=== PATIENT | male | born 1965 | race Caucasian/White ===

== ENCOUNTER 2017-08-12 12:45 | Emergency (ER) | payer OTHER ==
[2017-08-12 12:50] VITALS: PULSE 112; TEMP 98.1; BMI 30.5
[2017-08-12] MEDS ORDERED: PHENAZOPYRIDINE HCL 100 MG TABLET (FP) PO ONE (13:18)
[2017-08-12] MEDS ORDERED: TAMSULOSIN HCL 0.4 MG CAP.ER.24H (FP) PO ONE (13:18)
--- NOTE | 2017-08-12 13:26 | PDOC ---
History of Present Illness - General Chief Complaint: Urinary Catheter Problem Stated Complaint: URINARY RETENTION Time Seen by Provider: 08/12/17 13:17 - History of Present Illness Initial Comments: 08/12/17 14:25 Urinary retention History of present illness: The patient has been able to produce only dribbles of urine since this morning. Dysuria is present. There is also suprapubic pain. He catheterizes himself approximately once per week when he feels he is not urinating adequately. The rest of the time he is able to urinate normally. He has been doing this since multiple kidney stones left him with "scarring" and narrowing. Review of systems: No fever/chills, URI symptoms, sore throat, cough, chest pain , shortness of breath, hematemesis, melena, bloody stool, nausea, vomiting, diarrhea, visual or focal neurologic symptoms, unsteadiness of gait. 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 Denies prior ND. Urinary retention is noted above. Social/family history reviewed and noncontributory Physical exam: Alert and oriented well-developed well-nourished no acute distress cooperative Afebrile, vital signs normal No pallor or icterus. ENT clear Neck supple without bruit mass or nodes Lungs clear with full breath sounds bilaterally CV regular without murmur rub or gallop pulses full and symmetric no JVD or edema no bruits Abdomen nondistended. Bowel sounds normal. Soft without masses tenderness organomegaly. The bladder is not enlarged to percussion, and bladder scan reveals only 25-50 mL of urine : No CVAT. Testes descended bilaterally, without mass or tenderness. No urethral discharge or lesions. No inflammation. No hernias. Extremities no CCE Neurological C2 to 12 intact. No focal sensory or motor deficits. Gait stable and unimpaired Skin clear, no rash, adequate turgor and wet mucous membranes Impression: Urinary retention, intermittent, chronic, with probable prostatic inflammation preventing self-catheterization. Rule out UTI prostatitis. Plan: Attempt at catheterization was unsuccessful. Flomax and Pyridium were administered by mouth. Urologist was paged. Soon after taking the medication, the patient was able to urinate freely and desires to go to his urologist now as scheduled. He was unable to provide a urine sample. He will see his urologist now, hopefully provide a urine for urinalysis and culture, and discuss further treatment at that time. Fully ambulatory, no pain or other discomfort upon discharge, having urinated adequately, to follow-up later today with his urologist as scheduled. Past History - Past Medical History Allergies/Adverse Reactions: Allergies Allergy/AdvReac Type Severity Reaction Status Date / Time No Known Allergies Allergy Verified 08/12/17 12:53 Home Medications: Ambulatory Orders Allopurinol 300 mg PO DAILY 05/24/15 Aspirin [ASA -] 81 mg PO DAILY 05/24/15 Potassium Chloride [K-Dur] 10 meq PO BID 05/24/15 Pravastatin Sodium 20 mg PO DAILY 05/24/15 Telmisartan [Micardis] 80 mg PO DAILY 05/24/15 Carvedilol 25 mg PO BID tablet 05/28/15 Ibuprofen 600 mg PO TID PRN #20 tablet 05/16/16 Cardiac Disorders: Yes (pace maker/defibrillator,cardiomyopathy) COPD: No Diabetes: Yes Disorders: Yes (SELF CATHETERIZES) HTN: Yes Kidney Stones: Yes - Surgical History Cardiac Surgery: Yes (pace maker/defibrillator) - Immunization History Td Vaccination: Yes Immunization Up to Date: Yes - Suicide/Smoking/Psychosocial Hx Smoking Status: Yes Smoking History: Current every day smoker Have you smoked in the past 12 months: Yes Number of Cigarettes Smoked Daily: 20 Cigars Per Day: 0 Information on smoking cessation initiated: Yes 'Breaking Loose' booklet given: 08/12/17 Hx Alcohol Use: No Drug/Substance Use Hx: No Substance Use Type: None *Physical Exam - Vital Signs Last Vital Signs Temp Pulse Resp BP Pulse Ox 98.1 F 112 H 17 148/108 97 08/12/17 12:46 08/12/17 12:46 08/12/17 12:46 08/12/17 12:46 08/12/17 12:46 *DC/Admit/Observation/Transfer Diagnosis at time of Disposition: Urinary retention - Discharge Dispostion Disposition: HOME Condition at time of disposition: Improved Admit: No - Referrals Referrals: Thang Bass MD [Primary Care Provider] - - Patient Instructions Printed Discharge Instructions: DI for Urinary Retention in Men Additional Instructions: See your urologist today as scheduled. Provide urine for urinalysis and culture. Return to ER if there are any further symptoms. - Post Discharge Activity
[2017-08-12] MEDS ORDERED: PHENAZOPYRIDINE HCL 100 MG TABLET (FP) ONE (13:32)
[2017-08-12] MEDS ORDERED: TAMSULOSIN HCL 0.4 MG CAP.ER.24H (FP) ONE (13:32)
[2017-08-12 14:17] VITALS: BP 143/92
== END 2017-08-12 14:17 | disposition home or self-care (01) ==
LOC: FER 12:45
DX: R33.9 Retention of urine, unspecified (principal); F17.210 Nicotine dependence, cigarettes, uncomplicated; E11.9 Type 2 diabetes mellitus without complications; I10 Essential (primary) hypertension; Z87.442 Personal history of urinary calculi; Z95.0 Presence of cardiac pacemaker
CPT/HCPCS: 99282-25

== ENCOUNTER 2019-08-29 00:18 | Emergency (ER) | payer OTHER ==
[2019-08-29] MEDS ORDERED: KETOROLAC TROMETHAMINE 30 MG/1 ML VIAL IVPUSH ONE (00:21)
[2019-08-29] MEDS ORDERED: SODIUM CHLORIDE 1,000 ML IV ONE (00:21)
--- NOTE | 2019-08-29 00:22 | PDOC ---
History of Present Illness - General Stated Complaint: KIDNEY STONE Time Seen by Provider: 08/29/19 00:20 History Source: Patient Exam Limitations: No Limitations - History of Present Illness Initial Comments: 08/29/19 01:02 This is a 53-year-old male who comes in complaining of left flank pain radiating to his left lower quadrant. Patient has a history of renal colic in the past. 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 Patient's last stone was approximately 2 years ago. Patient denies any fevers, chills, nausea, vomiting, diarrhea blood in his urine or any other complaints. Allergies: as per nursing notes Past Medical History: Kidney stones Social history: Lives with family. No smoking. No alcohol. No illicit drugs. Surgical history: None General: No fevers or chills, no weakness, no weight loss HEENT: No change in vision. No sore throat,. No ear pain CardioVascular: no chest discomfort. No shortness of breath Respiratory:No cough, or wheezing. Gastrointestinal: no nausea, vomiting, diarrhea or constipation, No rectal bleeding Genitourinary: No dysuria, hematuria, or frequency Back/flank: Left flank pain Musculoskeletal: No joint or muscle pain or swelling Neurologic: No headache, vertigo, dizziness or loss of consciousness Psychiatric: nor depression Skin: No rashes or easy bruising Endocrine: no increased thirst or abnormal weight change Allergic: no skin or latex allergy All other systems reviewed and normal GENERAL: The patient is awake, alert, and fully oriented, in no acute distress. HEAD: Normal with no signs of trauma. EYES: Pupils equal, round and reactive to light, extraocular movements intact, sclera anicteric, conjunctiva clear. Back/Flank: There is pain on palpation over the right flank, there is no CVA tenderness on palpation. EXTREMITIES:atraumatic, Normal range of motion, no edema. NEUROLOGICAL: Normal speech, normal gait. PSYCH: Normal mood, normal affect. SKIN: Warm, Dry, normal turgor, no rashes or lesions noted. Assessment and plan: This is a 53-year-old male with history of renal colic in the past who comes in with left flank pain. Most likely secondary to a kidney stone. Work-up initiated including spiral CT, CBC, comp, UA and urine culture. Past History - Past Medical History Allergies/Adverse Reactions: Allergies Allergy/AdvReac Type Severity Reaction Status Date / Time No Known Allergies Allergy Verified 08/29/19 00:31 Home Medications: Ambulatory Orders Allopurinol 300 mg PO DAILY 05/24/15 Aspirin [ASA -] 81 mg PO DAILY 05/24/15 Potassium Chloride [K-Dur] 10 meq PO BID 05/24/15 Pravastatin Sodium 20 mg PO DAILY 05/24/15 Telmisartan [Micardis] 80 mg PO DAILY 05/24/15 Carvedilol 25 mg PO BID tablet 05/28/15 Ibuprofen 600 mg PO TID PRN #20 tablet 05/16/16 Cardiac Disorders: Yes (pace maker/defibrillator,cardiomyopathy) COPD: No Diabetes: Yes Disorders: Yes (SELF CATHETERIZES) HTN: Yes Kidney Stones: Yes - Surgical History Cardiac Surgery: Yes (pace maker/defibrillator) - Immunization History Td Vaccination: Yes Immunization Up to Date: Yes - Psycho Social/Smoking Cessation Hx Smoking Status: Yes Smoking History: Current every day smoker Have you smoked in the past 12 months: Yes Number of Cigarettes Smoked Daily: 20 Cigars Per Day: 0 'Breaking Loose' booklet given: 08/12/17 Hx Alcohol Use: No Drug/Substance Use Hx: No Substance Use Type: None ED Treatment Course - LABORATORY CBC & Chemistry Diagram: 08/29/19 00:30 08/29/19 00:30 Discharge - Discharge Information Problems reviewed: Yes Clinical Impression/Diagnosis: Renal colic on left side Condition: Good Disposition: HOME - Admission No - Follow up/Referral - Patient Discharge Instructions Additional Instructions: For the pain take ibuprofen or naproxen. Follow-up with your urologist. Stay well-hydrated. Return to the emergency department immediately with ANY new, persistent or worsening symptoms. Continue any medications as previously prescribed by your physician. You should follow up with your primary doctor as soon as possible regarding today's emergency department visit. . Please make sure your doctor reviews the results of your emergency evaluation. Thank you for coming to the Emergency Department today for your care. It was a pleasure to see you today. Please note that your evaluation is INCOMPLETE until you follow-up with your doctor. - Post Discharge Activity
[2019-08-29 00:43] VITALS: TEMP 98.1; BMI 29.5
[2019-08-29 01:00] LABS: BASO % 0.8 % (0-2.0); EOS % 1.3 % (0-4.5); HEMATOCRIT 47.9 % (35.4-49); HEMOGLOBIN 16.3 GM/dL (11.7-16.9); LYMPH % 17.2 % (8-40); MCH 31.5 pg (25.7-33.7); MCHC 34.1 g/dl (32.0-35.9); MEAN CELL VOLUME 92.3 fl (80-96); MONO % 6.4 % (3.8-10.2); NEUT % 74.3 % (42.8-82.8); PLATELET COUNT 255 K/MM3 (134-434); RBC 5.19 M/mm3 (4.00-5.60); RDW 13.8 % (11.9-15.9); WHITE BLOOD COUNT 8.1 K/mm3 (4.0-10.0)
[2019-08-29 01:21] LABS: ALBUMIN 4.3 g/dl (3.4-5.0); BILIRUBIN,TOTAL 0.5 mg/dL (0.2-1); CALCIUM 10.1 mg/dL (8.5-10.1); CREATININE 1.4 mg/dL (0.55-1.3); POTASSIUM 4.5 mmol/L (3.5-5.1); TOT PROT 8.2 g/dl (6.4-8.2)
[2019-08-29 01:26] LABS: EPI CELLS 0.5 /HPF (0-5/HPF); HYALINE CASTS 1 /lpf (0-8); URINE APPEARANCE CLEAR; URINE BACTERIA 36.6 /hpf (NEGATIVE); URINE BILIRUBIN NEGATIVE (NEGATIVE); URINE COLOR YELLOW; URINE GLUCOSE (UA) 3+ (NEGATIVE); URINE KETONE NEGATIVE (NEGATIVE); URINE LEUK ESTERASE 1+ (NEGATIVE); URINE NITRITE NEGATIVE (NEGATIVE); URINE PROTEIN NEGATIVE (NEGATIVE); URINE RBC 15 /hpf (0-4); URINE WBC 133 /hpf (0-5)
[2019-08-29 01:58] VITALS: BP 113/77; PULSE 88
== END 2019-08-29 01:59 | disposition home or self-care (01) ==
LOC: FER 00:18
PROC: 3E0333Z Introduction of Anti-inflammatory into Peripheral Vein, Percutaneous Approach (ICD-10-PCS; principal; 2019-08-29)
DX: N20.0 Calculus of kidney (principal); E11.9 Type 2 diabetes mellitus without complications; F17.210 Nicotine dependence, cigarettes, uncomplicated; Z95.5 Presence of coronary angioplasty implant and graft; I10 Essential (primary) hypertension
CPT/HCPCS: 36415; 74176-TC; 80053; 81003; 85025; 87086; 87186; 99282-25; J7030

== ENCOUNTER 2021-07-18 01:24 | Emergency (ER) | payer BC, OTHER ==
[2021-07-18 01:31] VITALS: BP 122/79; PULSE 80; TEMP 97.7; BMI 34.8
[2021-07-18] MEDS ORDERED: KETOROLAC TROMETHAMINE 60 MG/2 ML VIAL IM ONE (02:07)
[2021-07-18] MEDS ORDERED: CIPROFLOXACIN 500 MG TABLET (RESTRICTED TO ID) PO ONE (02:07)
[2021-07-18] MEDS ORDERED: KETOROLAC TROMETHAMINE 60 MG/2 ML VIAL ONE (02:10)
[2021-07-18] MEDS ORDERED: CIPROFLOXACIN 250 MG TABLET (RESTRICTED TO ID) PO ONE (02:10)
[2021-07-18] MEDS ORDERED: OXYBUTYNIN CHLORIDE 5 MG TABLET PO ONE (02:28)
== END 2021-07-18 02:39 | disposition left against medical advice (07) ==
LOC: FER 01:24
PROC: 3E0233Z Introduction of Anti-inflammatory into Muscle, Percutaneous Approach (ICD-10-PCS; principal; 2021-07-18)
DX: R30.9 Painful micturition, unspecified (principal)
CPT/HCPCS: 99284-25

== ENCOUNTER 2025-03-30 06:46 | Emergency (ER) | payer BC, OTHER ==
[2025-03-30 06:56] VITALS: BP 93/74; PULSE 85; RESP 18; TEMP 97.7; BMI 34.8
[2025-03-30] MEDS ORDERED: KETOROLAC TROMETHAMINE 30 MG/1 ML VIAL ONE (07:05)
[2025-03-30] MEDS: KETOROLAC TROMETHAMINE 30 MG/1 ML VIAL IVPUSH ONE (07:07)
[2025-03-30] MEDS: LACTATED RINGERS SOLUTION 1000 ML INFUS.BAG IV ONE (07:38)
[2025-03-30 08:15] LABS: ABSOLUTE IMMATURE GRANULOCYTES 0.01 x10^3/uL (0.0-0.031); BASOPHILS # 0.04 x10^3/uL (0.01-0.08); EOSINOPHIL % 1.8 % (0.8-7.0); EOSINOPHILS # 0.09 x10^3/uL (0.04-0.54); MCHC 33.2 g/dl (32.3-36.5); MEAN CELL VOLUME 92.8 fl (79.0-92.2); MEAN PLT VOLUME 9.7 fl (9.4-12.4); MONOCYTE # 0.48 x10^3/uL (0.30-0.82); MONOCYTE % 9.5 % (5.3-12.2); RDW 13.1 % (12.2-16.1)
[2025-03-30 08:32] LABS: EPITHELIAL CELLS 0-5 /hpf
[2025-03-30 08:43] LABS: ALK PHOS 61 U/L (45-117); CO2 23 mmol/L (21-32); CREATININE 1.5 mg/dl (0.6-1.3); GLUCOSE,RANDOM 129 mg/dl (74-106); SGOT/AST 39 U/L (15-37); SGPT/ALT 65 U/L (7-52); TOT PROT 7.2 g/dl (6.4-8.2)
[2025-03-30 10:14] LABS: HIV INTERPRETATION NEGATIVE (NEGATIVE)
[2025-03-30 10:15] LABS: HCV DIAGNOSTIC IN-HOUSE W/RFLX NON-REACTIVE (NONREACTIVE)
== END 2025-03-30 10:22 | disposition home or self-care (01) ==
LOC: FER 06:46
PROC: 3E03329 Introduction of Other Anti-infective into Peripheral Vein, Percutaneous Approach (ICD-10-PCS; principal; 2025-03-30)
PROC: 3E0333Z Introduction of Anti-inflammatory into Peripheral Vein, Percutaneous Approach (ICD-10-PCS; 2025-03-30)
DX: R10.9 Unspecified abdominal pain (principal); R11.0 Nausea
CPT/HCPCS: 36415; 74177-TC; 80053; 81003; 81015; 85025; 86803; 87077; 87086; 87389; 99285-25; Q9967